=== PATIENT | female | born 1945 ===

== ENCOUNTER → 2016-12-31 | Outpatient (REF) | payer BC ==
[2016-12-31 17:57] LABS: PERCENT SATURATION 6.6 % (13.2-37.4); TOTAL IRON BINDING CAPACITY 468 UG/DL (250-450)
[2016-12-31 18:09] LABS: FOLATE > 24.0 NG/ML; VITAMIN B12 LEVEL 1591 PG/ML
== END ==
LOC: M LAB REF 16:28
PROVIDERS: ATTEND Internal Medicine
DX: D56.8 Other thalassemias (principal)

== ENCOUNTER → 2017-02-05 | Outpatient (REF) | payer BC ==
[2017-02-05 18:34] LABS: RETIC HEMOGLOBIN CONTENT CHr 28.6 PG (24-36)
[2017-02-05 18:57] LABS: PERCENT SATURATION 5.8 % (13.2-37.4)
== END ==
LOC: M LAB REF 16:19
PROVIDERS: ATTEND Internal Medicine
DX: D50.9 Iron deficiency anemia, unspecified (principal)

== ENCOUNTER → 2017-11-04 | Outpatient (CLI) | payer BC, MEDICARE | LOC: M WUC 16:07 | DX: R05 Cough (principal); R91.8 Other nonspecific abnormal finding of lung field | CPT/HCPCS: 71046 ==

== ENCOUNTER → 2017-12-01 | Outpatient (CLI) | payer BC, MEDICARE | LOC: M WUC 16:16 | DX: R53.83 Other fatigue (principal) | CPT/HCPCS: 71046 ==